=== PATIENT | female | born 1985 | race African-American/Black ===

== ENCOUNTER 2016-06-16 17:09 | Emergency (ER) | payer SELFPAY ==
[~2016-06-16] VITALS: Ht 165.1 cm; Wt 68.0 kg
[2016-06-16] MEDS ORDERED: KETOROLAC 30MG/ML VIAL IV ONE (18:15)
[2016-06-16 19:07] VITALS: BP 109/72
[2016-06-16 19:18] LABS: BASOPHILS % 1.1 % (0.0-2.0); EOSINOPHILS % 0.9 % (0.0-5.0); HEMATOCRIT. 42.2 % (36.0-48.0); HEMOGLOBIN. 13.9 g/dL (12.0-16.0); LYMPHOCYTES % 39.9 % (20.0-50.0); MEAN CORPUSCULAR HEMOGLOBIN 27.7 pg (28.0-32.0); MEAN CORPUSCULAR HGB CONC 32.9 g/dL (31.0-37.0); MEAN CORPUSCULAR VOLUME 84.4 fL (81.0-99.0); MEAN PLATELET VOLUME 8.5 fl (7.4-10.4); MONOCYTES % 9.5 % (2.0-8.0); NEUTROPHILS % 48.6 % (40.0-76.0); PLATELET 235 x1000/uL (130-400); RED BLOOD CELL COUNT 5.01 mill/uL (4.2-5.4); RED CELL DISTRIBUTION WIDTH 14.1 % (11.6-14.6); WHITE BLOOD COUNT 5.4 x1000/uL (4.5-11.0)
[2016-06-16 19:22] LABS: PROTHROMBIN TIME 10.1 sec
[2016-06-16 19:30] LABS: ALANINE AMINOTRANSFERASE 32 IU/L (13-61); ANION GAP 14; CALCIUM 8.4 mg/dL (8.5-10.1); CARBON DIOXIDE 25 mEq/L (21-32); CHLORIDE 112 mEq/L (98-107); INDEX HEMOLYSI 3 (1-3); INDEX ICTERIC 1 (1-4); INDEX LIPEMIC 1 (1-3); LIPASE 226 IU/L (73-393); UREA NITROGEN BLOOD 10 mg/dL (7-21); eGFR > 60 mL/min (>60)
[2016-06-16 19:33] LABS: TROPONIN I < 0.02 ng/mL (0.00-0.04)
[2016-06-16 19:51] LABS: HCG SCREEN NEGATIVE
== END 2016-06-16 21:10 | disposition left against medical advice (07) ==
LOC: ER 17:09
DX: S20.212A Contusion of left front wall of thorax, initial encounter (principal); S20.211A Contusion of right front wall of thorax, initial encounter; E11.9 Type 2 diabetes mellitus without complications; Z88.6 Allergy status to analgesic agent; Z91.041 Radiographic dye allergy status; Z91.018 Allergy to other foods; F17.210 Nicotine dependence, cigarettes, uncomplicated; Y04.0XXA Assault by unarmed brawl or fight, initial encounter; Y93.89 Activity, other specified; Y92.830 Public park as the place of occurrence of the external cause
CPT/HCPCS: 36415; 70450; 71020; 71250; 74176; 76705; 80053; 83690; 84484; 84703; 85025; 85610; 93005; 96374; 99285; J1885

== ENCOUNTER 2016-08-03 18:01 | Emergency (ER) | payer SELFPAY ==
[~2016-08-03] VITALS: Ht 162.6 cm; Wt 70.0 kg
[2016-08-03 18:44] VITALS: BP 116/64
== END 2016-08-03 20:18 | disposition left against medical advice (07) ==
LOC: ER 18:58
DX: Z53.21 Procedure and treatment not carried out due to patient leaving prior to being seen by health care provider (principal)

== ENCOUNTER 2016-11-05 16:03 | Emergency (ER) | payer SELFPAY ==
[~2016-11-05] VITALS: Ht 165.1 cm; Wt 64.0 kg
[2016-11-05 16:04] VITALS: BP 130/74
== END 2016-11-05 16:56 | disposition left against medical advice (07) ==
LOC: ER 16:21
DX: M79.603 Pain in arm, unspecified (principal); Z53.21 Procedure and treatment not carried out due to patient leaving prior to being seen by health care provider
CPT/HCPCS: 93005

== ENCOUNTER 2017-03-01 18:12 | Emergency (ER) | payer SELFPAY ==
[~2017-03-01] VITALS: Ht 162.6 cm; Wt 55.0 kg
[2017-03-01] MEDS ORDERED: ASPIRIN 81MG TABLET PO ONE (18:30)
[2017-03-01] MEDS ORDERED: NITROGLYCERIN OINT 1GM/INCH UDPKT TD ONE (18:30)
[2017-03-01 19:10] LABS: BASOPHILS % 0.7 % (0.0-2.0); EOSINOPHILS % 1.1 % (0.0-5.0); HEMATOCRIT. 43.1 % (36.0-48.0); HEMOGLOBIN. 14.2 g/dL (12.0-16.0); LYMPHOCYTES % 39.2 % (20.0-50.0); MEAN CORPUSCULAR HEMOGLOBIN 28.1 pg (28.0-32.0); MEAN CORPUSCULAR VOLUME 85.6 fL (81.0-99.0); MEAN PLATELET VOLUME 8.8 fl (7.4-10.4); MONOCYTES % 7.8 % (2.0-8.0); NEUTROPHILS % 51.2 % (40.0-76.0); PLATELET 272 x1000/uL (130-400); RED BLOOD CELL COUNT 5.04 mill/uL (4.2-5.4); RED CELL DISTRIBUTION WIDTH 14.9 % (11.6-14.6)
[2017-03-01 19:13] LABS: CHLORIDE 113 mEq/L (98-107)
[2017-03-01 19:16] LABS: D-DIMER 0.27 mg/L FEU (<0.50); PROTHROMBIN TIME 10.1 sec (9.4-11.6)
[2017-03-01 19:21] LABS: CARBON DIOXIDE 23 mEq/L (21-32); HCG SCREEN NEGATIVE
[2017-03-01 19:23] LABS: TROPONIN I < 0.02 ng/mL (0.00-0.04)
[2017-03-01 19:25] LABS: ETHANOL BLOOD 345 mg/dL
[2017-03-01 20:24] VITALS: BP 103/84
== END 2017-03-01 20:29 | disposition home or self-care (01) ==
LOC: ER 18:50 → CANBEDREQ 21:08
DX: F10.10 Alcohol abuse, uncomplicated (principal); K21.9 Gastro-esophageal reflux disease without esophagitis; R07.89 Other chest pain; E11.9 Type 2 diabetes mellitus without complications; F41.9 Anxiety disorder, unspecified; Y90.8 Blood alcohol level of 240 mg/100 ml or more; Z88.6 Allergy status to analgesic agent; Z91.041 Radiographic dye allergy status; Z91.018 Allergy to other foods
CPT/HCPCS: 36415; 71010; 80053; 83690; 83880; 84484; 84703; 85025; 85379; 85610; 93005; 99285; G0482; Z7610

== ENCOUNTER 2017-10-22 21:21 | Emergency (ER) | payer MEDICAID ==
[~2017-10-22] VITALS: Ht 162.6 cm; Wt 65.0 kg
[2017-10-22] MEDS ORDERED: ONDANSETRON HCL 4MG/2ML VIAL IV STA (22:57)
[2017-10-22] MEDS ORDERED: MORPHINE SULFATE 4 MG/ML CPJ (NOT FOR IM USE) IV STA (22:57)
[2017-10-22] MEDS ORDERED: SODIUM CHLORIDE 0.9% 1,000 ML IV ONE (22:57)
[2017-10-22] MEDS ORDERED: DIPHENHYDRAMINE 50MG/ML VIAL IV ONE (23:00)
[2017-10-22] MEDS ORDERED: METHYLPREDNISOLONE SOD SUCC 40 MG/ML VIAL IV ONE (23:00)
[2017-10-22 23:13] LABS: BASOPHILS % 0.6 % (0.0-2.0); HEMATOCRIT. 40.7 % (36.0-48.0); HEMOGLOBIN. 13.4 g/dL (12.0-16.0); MEAN CORPUSCULAR HEMOGLOBIN 28.6 pg (28.0-32.0); MEAN CORPUSCULAR VOLUME 86.7 fL (81.0-99.0); MEAN PLATELET VOLUME 8.7 fl (7.4-10.4); NEUTROPHILS % 55.4 % (40.0-76.0); PLATELET 284 x1000/uL (130-400); RED BLOOD CELL COUNT 4.69 mill/uL (4.2-5.4); RED CELL DISTRIBUTION WIDTH 14.4 % (11.6-14.6)
[2017-10-22 23:15] LABS: CHLORIDE 113 mEq/L (98-107)
[2017-10-23 03:24] VITALS: BP 99/58
[2017-10-23] MEDS ORDERED: IOHEXOL-350 100 ML BOTTLE ONE (04:16)
== END 2017-10-23 03:37 | disposition home or self-care (01) ==
LOC: ER 22:06
DX: R07.9 Chest pain, unspecified (principal); F41.9 Anxiety disorder, unspecified; R10.84 Generalized abdominal pain; F17.200 Nicotine dependence, unspecified, uncomplicated; Z88.8 Allergy status to other drugs, medicaments and biological substances; Z91.018 Allergy to other foods; Z88.6 Allergy status to analgesic agent
CPT/HCPCS: 36415; 71045; 71275; 80053; 83690; 83880; 84484; 85025; 93005; 96361; 96374; 96375; 99285; J1200; J2270; J2405; J2920; J7030; Q9967; Z7610

== ENCOUNTER 2017-11-15 01:53 | Emergency (ER) | payer MEDICAID ==
[~2017-11-15] VITALS: Ht 162.6 cm; Wt 65.0 kg
[2017-11-15 04:20] VITALS: BP 120/82
[2017-11-15 05:23] LABS: *AMPHETAMINES SCREEN URINE NEGATIVE (NEGATIVE); *BARBITURATES SCREEN URINE NEGATIVE (NEGATIVE); *BENZODIAZEPINES SCREEN URINE NEGATIVE (NEGATIVE); *COCAINE SCREEN URINE NEGATIVE (NEGATIVE); METHADONE URINE SCREEN NEGATIVE (NEGATIVE)
[2017-11-15 05:24] LABS: CANNABINOID URINE SCREEN NEGATIVE (NEGATIVE); OPIATES URINE SCREEN NEGATIVE (NEGATIVE); PHENCYCLIDINE URINE SCREEN NEGATIVE (NEGATIVE)
[2017-11-15] MEDS ORDERED: ACETAMINOPHEN 500MG TABLET PO SCH (05:52)
== END 2017-11-15 06:14 | disposition left against medical advice (07) ==
LOC: ER 02:10
DX: S00.93XA Contusion of unspecified part of head, initial encounter (principal); R09.89 Other specified symptoms and signs involving the circulatory and respiratory systems; Z79.899 Other long term (current) drug therapy; Z88.8 Allergy status to other drugs, medicaments and biological substances; Z91.018 Allergy to other foods; Y08.89XA Assault by other specified means, initial encounter; Y93.89 Activity, other specified; Y92.89 Other specified places as the place of occurrence of the external cause; Y99.8 Other external cause status
CPT/HCPCS: 70450; 71046; 80305; 81025; 93005; 99285

== ENCOUNTER 2017-11-27 01:11 | Emergency (ER) | payer MEDICAID ==
[~2017-11-27] VITALS: Ht 162.6 cm; Wt 63.6 kg
[2017-11-27] MEDS ORDERED: MORPHINE SULFATE 4 MG/ML CPJ (NOT FOR IM USE) IV STA (01:53)
[2017-11-27] MEDS ORDERED: ONDANSETRON HCL 4MG/2ML VIAL IV STA (01:53)
[2017-11-27] MEDS ORDERED: SODIUM CHLORIDE 0.9% 1,000 ML IV ONE (01:53)
[2017-11-27 02:10] LABS: CHLORIDE 110 mEq/L (98-107)
[2017-11-27 02:21] LABS: BASOPHILS % 0.7 % (0.0-2.0); EOSINOPHILS % 1.6 % (0.0-5.0); HEMATOCRIT. 43.8 % (36.0-48.0); HEMOGLOBIN. 14.8 g/dL (12.0-16.0); LYMPHOCYTES % 31.6 % (20.0-50.0); MEAN CORPUSCULAR HEMOGLOBIN 28.5 pg (28.0-32.0); MEAN CORPUSCULAR VOLUME 84.2 fL (81.0-99.0); MEAN PLATELET VOLUME 8.6 fl (7.4-10.4); MONOCYTES % 11.9 % (2.0-8.0); NEUTROPHILS % 54.2 % (40.0-76.0); PLATELET 287 x1000/uL (130-400); RED CELL DISTRIBUTION WIDTH 13.2 % (11.6-14.6)
[2017-11-27] MEDS ORDERED: IOHEXOL-300 100 ML BOTTLE ONE (02:47)
[2017-11-27] MEDS ORDERED: MORPHINE SULFATE 4 MG/ML CPJ (NOT FOR IM USE) IV ONE (03:45)
[2017-11-27 05:21] VITALS: BP 98/58
== END 2017-11-27 05:23 | disposition home or self-care (01) ==
LOC: ER 01:11
DX: S29.8XXA Other specified injuries of thorax, initial encounter (principal); F41.9 Anxiety disorder, unspecified; F17.200 Nicotine dependence, unspecified, uncomplicated; Y04.8XXA Assault by other bodily force, initial encounter; Y93.89 Activity, other specified; Y92.89 Other specified places as the place of occurrence of the external cause; Y99.8 Other external cause status; Z91.018 Allergy to other foods
CPT/HCPCS: 36415; 71045; 71260; 74177; 80048; 81025; 85025; 86850; 86900; 86901; 93005; 96374; 96375; 96376; 99285; J2270; J2405; J7030; Q9967

== ENCOUNTER 2017-11-27 21:40 | Emergency (ER) | payer MEDICAID ==
[~2017-11-27] VITALS: Ht 162.6 cm; Wt 58.0 kg
[2017-11-27] MEDS ORDERED: KETOROLAC 60MG/2ML VIAL IM STA (22:41)
[2017-11-28 00:07] LABS: BASOPHILS % 0.8 % (0.0-2.0); EOSINOPHILS % 1.6 % (0.0-5.0); HEMATOCRIT. 39.9 % (36.0-48.0); HEMOGLOBIN. 13.4 g/dL (12.0-16.0); LYMPHOCYTES % 37.6 % (20.0-50.0); MEAN CORPUSCULAR HEMOGLOBIN 28.4 pg (28.0-32.0); MEAN CORPUSCULAR VOLUME 84.5 fL (81.0-99.0); MEAN PLATELET VOLUME 8.5 fl (7.4-10.4); MONOCYTES % 7.9 % (2.0-8.0); NEUTROPHILS % 52.1 % (40.0-76.0); PLATELET 256 x1000/uL (130-400); RED BLOOD CELL COUNT 4.72 mill/uL (4.2-5.4); RED CELL DISTRIBUTION WIDTH 13.4 % (11.6-14.6)
[2017-11-28 00:09] LABS: CHLORIDE 111 mEq/L (98-107)
[2017-11-28 00:20] LABS: CREATINE KINASE 128 IU/L (26-192)
[2017-11-28 00:47] VITALS: BP 95/60
== END 2017-11-28 00:57 | disposition home or self-care (01) ==
LOC: ER 21:40
DX: S20.219A Contusion of unspecified front wall of thorax, initial encounter (principal); F17.200 Nicotine dependence, unspecified, uncomplicated; X58.XXXA Exposure to other specified factors, initial encounter; Y93.9 Activity, unspecified; Y92.9 Unspecified place or not applicable; Z91.013 Allergy to seafood; Z91.018 Allergy to other foods
CPT/HCPCS: 36415; 71045; 80053; 81025; 82550; 84484; 85025; 93005; 96372; 99285; J1885

== ENCOUNTER 2018-03-30 20:20 | Emergency (ER) | payer MEDICAID ==
[~2018-03-30] VITALS: Ht 162.6 cm; Wt 59.0 kg
[2018-03-30] MEDS ORDERED: DIPHENHYDRAMINE 50MG/ML VIAL IV ONE (21:45)
[2018-03-30] MEDS ORDERED: SODIUM CHLORIDE 0.9% 1,000 ML IV SCH (21:45)
[2018-03-30] MEDS ORDERED: ALBUTEROL (0.5%) 2.5MG/0.5ML NEB HHN ONE (21:45)
[2018-03-30] MEDS ORDERED: METHYLPREDNISOLONE SOD SUCC 125 MG/2 ML VIAL IV ONE (21:45)
[2018-03-30] MEDS ORDERED: ONDANSETRON HCL 4MG/2ML INJ IV ONE (21:45)
[2018-03-30] MEDS ORDERED: FAMOTIDINE 20MG/2ML VIAL IV ONE (21:45)
[2018-03-30] MEDS ORDERED: EPINEPHRINE 1:1000 1 MG/ML AMP IM ONE (21:45)
[2018-03-30 23:04] LABS: *BENZODIAZEPINES SCREEN URINE NEGATIVE (NEGATIVE)
[2018-03-30 23:06] LABS: *COCAINE SCREEN URINE NEGATIVE (NEGATIVE)
[2018-03-30 23:07] LABS: *AMPHETAMINES SCREEN URINE NEGATIVE (NEGATIVE); CANNABINOID URINE SCREEN NEGATIVE (NEGATIVE); METHADONE URINE SCREEN NEGATIVE (NEGATIVE); OPIATES URINE SCREEN NEGATIVE (NEGATIVE); PHENCYCLIDINE URINE SCREEN NEGATIVE (NEGATIVE)
[2018-03-30 23:08] LABS: *BARBITURATES SCREEN URINE NEGATIVE (NEGATIVE)
[2018-03-30 23:42] LABS: BASOPHILS % 0.4 % (0.0-2.0); CHLORIDE 113 mEq/L (98-107); EOSINOPHILS % 0.7 % (0.0-5.0); HEMATOCRIT. 41.8 % (36.0-48.0); HEMOGLOBIN. 13.6 g/dL (12.0-16.0); LYMPHOCYTES % 30.3 % (20.0-50.0); MEAN CORPUSCULAR HEMOGLOBIN 28.4 pg (28.0-32.0); MEAN CORPUSCULAR VOLUME 87.7 fL (81.0-99.0); MEAN PLATELET VOLUME 8.7 fl (7.4-10.4); MONOCYTES % 4.1 % (2.0-8.0); NEUTROPHILS % 64.5 % (40.0-76.0); PLATELET 270 x1000/uL (130-400); RED BLOOD CELL COUNT 4.77 mill/uL (4.2-5.4); RED CELL DISTRIBUTION WIDTH 14.9 % (11.6-14.6)
[2018-03-30 23:46] LABS: ETHANOL BLOOD 286 mg/dL
[2018-03-31 00:09] LABS: HCG SCREEN NEGATIVE
[2018-03-31 00:15] VITALS: BP 117/62
[2018-03-31] MEDS ORDERED: POTASSIUM CHLORIDE 20MEQ TABLET SR PO ONE (00:45)
[2018-03-31] MEDS ORDERED: KETOROLAC 30MG/ML VIAL IV ONE (00:45)
== END 2018-03-31 01:05 | disposition left against medical advice (07) ==
LOC: ER 20:20
DX: T78.1XXA Other adverse food reactions, not elsewhere classified, initial encounter (principal); F10.129 Alcohol abuse with intoxication, unspecified; E87.6 Hypokalemia; F17.200 Nicotine dependence, unspecified, uncomplicated; X58.XXXA Exposure to other specified factors, initial encounter; Z71.6 Tobacco abuse counseling; Z91.013 Allergy to seafood; Z91.018 Allergy to other foods
CPT/HCPCS: 36415; 80053; 80305; 84703; 85025; 93005; 94640; 96361; 96372; 96374; 96375; 99283; 99406; G0482; J1200; J2405; J2930; J3490; J1885; J7611

== ENCOUNTER 2018-07-26 21:22 | Emergency (ER) | payer MEDICAID | END 2018-07-26 23:59 | disposition left against medical advice (07) | LOC: ER 23:43 | DX: Z53.21 Procedure and treatment not carried out due to patient leaving prior to being seen by health care provider (principal) ==

== ENCOUNTER 2021-11-14 23:10 | Emergency (ER) | payer MEDICAID ==
[~2021-11-14] VITALS: Ht 160 cm; Wt 59.0 kg
[2021-11-15 00:49] VITALS: BP 116/81
[2021-11-15] MEDS ORDERED: IBUPROFEN 400MG TABLET PO ONE (01:15)
[2021-11-15] MEDS ORDERED: LORAZEPAM 1MG TABLET PO ONE (01:15)
[2021-11-15 02:05] LABS: EOSINOPHILS % 0.9 % (0.0-5.0); HEMATOCRIT. 40.4 % (36.0-48.0); HEMOGLOBIN. 13.3 g/dL (12.0-16.0); LYMPHOCYTES % 38.1 % (20.0-50.0); MEAN CORPUSCULAR HEMOGLOBIN 27.9 pg (28.0-32.0); MEAN CORPUSCULAR VOLUME 84.6 fL (81.0-99.0); MEAN PLATELET VOLUME 8.2 fl (7.4-10.4); MONOCYTES % 6.1 % (2.0-8.0); NEUTROPHILS % 53.9 % (40.0-76.0); PLATELET 342 x1000/uL (130-400); RED BLOOD CELL COUNT 4.77 mill/uL (4.2-5.4); RED CELL DISTRIBUTION WIDTH 15.4 % (11.6-14.6)
[2021-11-15 02:12] LABS: CHLORIDE 109 mEq/L (98-107)
[2021-11-15 02:18] LABS: HCG SCREEN NEGATIVE
[2021-11-15] MEDS ORDERED: IBUPROFEN 400MG TABLET PO NR (03:15)
[2021-11-15] MEDS ORDERED: LORAZEPAM 1MG TABLET PO NR (03:15)
== END 2021-11-15 04:10 | disposition home or self-care (01) ==
LOC: ER 23:10
DX: F41.9 Anxiety disorder, unspecified (principal); R07.89 Other chest pain
CPT/HCPCS: 36415; 71045; 80053; 84484; 84703; 85025; 85379; 93005; 99285

== ENCOUNTER 2023-11-17 00:07 | Emergency (ER) | payer MEDICAID ==
[2023-11-17 00:09] VITALS: PULSE 100; O2SAT 100
== END 2023-11-17 01:33 | disposition left against medical advice (07) ==
LOC: ER 00:16
DX: R07.89 Other chest pain (principal); Z53.21 Procedure and treatment not carried out due to patient leaving prior to being seen by health care provider